=== PATIENT | male | born 2000 | race Two or more races ===

== ENCOUNTER 2024-12-01 03:45 | Emergency (ER) | payer OTHER ==
[~2024-12-01] VITALS: Ht 180.3 cm; Wt 117.2 kg
[2024-12-01 04:04] VITALS: BP 136/88; PULSE 91; RESP 16; TEMP 99; O2SAT 95
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
[2024-12-02 10:36] LABS: Hepatitis B Surface Antibody Positive (Negative)
[2024-12-02 10:39] LABS: Hepatitis B Surface Antigen Negative (Negative)
== END 2024-12-01 04:50 | disposition home or self-care (01) ==
LOC: ER 03:48
DX: Z77.21 Contact with and (suspected) exposure to potentially hazardous body fluids (principal); Z88.0 Allergy status to penicillin; Z79.899 Other long term (current) drug therapy; Z86.2 Personal history of diseases of the blood and blood-forming organs and certain disorders involving the immune mechanism
CPT/HCPCS: 36415; 86703; 86706; 86803; 87340